=== PATIENT | male | born 1970 | race Two or more races ===

== ENCOUNTER 2017-12-17 22:02 | Emergency (ER) | payer OTHER ==
[~2017-12-17] VITALS: Ht 193 cm; Wt 138.3 kg
--- NOTE | 2017-12-17 22:28 | NUR ---
MATILDE FROM STRRT DT RIGHT ARM PAIN, 8/10 AT THIS TIME,. PATIENT DENIES TRAUMA, PATIENT APPEARS ANXIOUS, POSSIBLE ETOH. NOT IN DISTRESS, SKIN IS WARM TO TOUCH AND NON DIAPHORETIC, PT IS AFEBRILE. VSS
--- NOTE | 2017-12-17 23:06 | NUR ---
DR. WALLACE AT BEDSIDE FOR EVAL.
--- NOTE | 2017-12-17 23:14 | NUR ---
RADIOLOGY AT BEDSIDE FOR XR
--- NOTE | 2017-12-18 02:33 | NUR ---
Patient discharged to home in stable condition. Written and verbal after care instructions given. Patient verbalizes understanding of instruction. ambulatory with a steady gait with personal cane. pt w/c to waiting room per request.
[2017-12-18 02:37] VITALS: BP 124/86
== END 2017-12-18 02:38 | disposition home or self-care (01) ==
LOC: ER 22:04
DX: S62.306A Unspecified fracture of fifth metacarpal bone, right hand, initial encounter for closed fracture (principal); S40.021A Contusion of right upper arm, initial encounter; I10 Essential (primary) hypertension; Z88.1 Allergy status to other antibiotic agents; X58.XXXA Exposure to other specified factors, initial encounter; Y93.89 Activity, other specified; Y92.89 Other specified places as the place of occurrence of the external cause; Y99.8 Other external cause status
CPT/HCPCS: 29105; 73090; 73130; 99284; A4606 ×2; Z7610 ×2

== ENCOUNTER 2018-01-01 23:21 | Emergency (ER) | payer OTHER ==
[~2018-01-01] VITALS: Ht 193 cm; Wt 138.3 kg
[2018-01-01 23:32] VITALS: BP 155/95
[2018-01-01] MEDS ORDERED: AMOX/CLAVULANATE 875 MG TABLET ONE (23:56)
[2018-01-01] MEDS ORDERED: TDAP [DIPH/PERTUSSIS/TET] 0.5 ML VIAL IM ONE (23:56)
[2018-01-02] MEDS ORDERED: TDAP [DIPH/PERTUSSIS/TET] 0.5 ML VIAL IM ONE
[2018-01-02] MEDS ORDERED: AMOX/CLAVULANATE 875 MG TABLET PO ONE
[2018-01-02] MEDS ORDERED: IBUPROFEN 400 MG TABLET PO ONE (01:00)
[2018-01-02] MEDS ORDERED: IBUPROFEN 400 MG TABLET ONE (01:06)
== END 2018-01-02 01:23 | disposition home or self-care (01) ==
LOC: ER 23:22
DX: S40.021A Contusion of right upper arm, initial encounter (principal); S50.812A Abrasion of left forearm, initial encounter; I10 Essential (primary) hypertension; E11.9 Type 2 diabetes mellitus without complications; Z88.1 Allergy status to other antibiotic agents; Y04.1XXA Assault by human bite, initial encounter; Y93.89 Activity, other specified; Y92.89 Other specified places as the place of occurrence of the external cause; Y99.8 Other external cause status
CPT/HCPCS: 36415; 80074; 90471; 90715; 99284; A4606; Z7610